=== PATIENT | female | born 1985 | race Caucasian/White ===

== ENCOUNTER → 2019-12-19 17:19 | Outpatient (CLI) | payer SELFPAY ==
--- NOTE | 2019-12-19 18:15 | MRI_ITS ---
STUDY: MRI BRAIN WITH AND WITHOUT CONTRAST REASON FOR EXAM: Female, 34 years old. LEFT blurred vision,dizziness, H/A x 1 week, family Hx MS TECHNIQUE: Standardized multiplanar fat and water weighted pulse sequences were obtained. 13ml Dotarem via IV was administered for the contrast portion of the examination. COMPARISON: May 21, 2017 FINDINGS: Normal size of the ventricles and extra-axial spaces for the patient''s age. Mild nonspecific periventricular white matter disease.. There are foci of restricted diffusion in the left parieto-occipital region as well as the right parietal lobe. Possibility of coexisting acute ischemic changes are not excluded Normal bilateral basal ganglia. Normal thalami. There is no extra-axial fluid accumulation. Normal flow voids within the major intracranial circulation suggesting patency by spin echo criteria. Normal venous enhancement. There is no enhancing intra-axial or extra-axial abnormality. Normal sella turcica, pituitary gland, infundibular stalk, optic chiasm and hypothalamus. Normal tectal plate and pineal gland. Normal midbrain, leighann and medulla. Normal cerebellum. Normal basal cisterns. Normal bilateral temporal bones. Normal bilateral internal auditory canals. No demonstrated orbital abnormality, within the constraints of a routine brain study. Normal visualized paranasal sinuses. Normal calvarium and skull base. Normal visualized soft tissue structures. Normal visualized upper cervical spine. MRI/Brain W/WO Contrast IMPRESSION: Mild nonspecific periventricular white matter disease which may be consistent with clinical history of multiple sclerosis however there are foci of restricted diffusion in the left parietal occipital region and right parietal lobe which may represent foci of acute demyelination however coexisting acute ischemic changes cannot be excluded. As these lesions are in different vascular distributions embolic disease also may be considered. Clinical correlation is recommended Electronically Signed: Manuel Gutierrez MD at 19:28 EDT , Service support ,
== END ==
PROVIDERS: Referring Provider Ophthalmology; Visit Provider Ophthalmology
DX: H46.9 Unspecified optic neuritis (principal)
CPT/HCPCS: 70553; A9575

== ENCOUNTER 2020-03-19 17:06 | Emergency (ER) | payer MEDICAID, SELFPAY ==
[2020-03-19 17:08] VITALS: BP 148/89; PULSE 95; RESP 17; TEMP 36.5; O2SAT 100; BMI 24.3
--- NOTE | 2020-03-19 17:40 | ED.DCSUM_ITS ---
History of Present Illness Chief Complaint: Headache Informant: Patient Onset: Days - 2 Context: Gradual, Onset - day after having diagnostic LP at [facility] Timing: Continuous Quality: Similar Prior Headaches - but worse, Throbbing Location: bifrontal, radiating to neck Current Severity: Severe Maximum Severity: Severe Worsened by: sitting up Relieved by: lying supine Associated Symptoms: Negative for: Fever, Nausea, Vomiting, Sore Throat, Sinus Pressure, Numbness, Tingling, Visual Changes, Blurred Vision, Photophobia, Visual Loss Narrative: Patient had a diagnostic LP at [facility] 3 days ago that was done to rule out other things in process of potentially diagnosing her with multiple sclerosis which runs in her family after an episode of optic neuritis that she had several months ago. She was having headaches prior to the LP and during that, the day after that they started worsening. It is similar headache, and she describes it as a migraine because she has a history of these and it feels similar, except this 1 is much better with lying down and worse with sitting up. She called and was advised to come to the emergency department. She is having neck pain with this as well posteriorly. She does not necessarily feel stiff. She denies any fevers or low back pain, and no focal neurologic symptoms in her arms or legs. She states after the lumbar puncture, she lied flat for an hour. She also has been drinking caffeinated beverages over the last couple days. Past Medical History - Allergies and Home Meds Allergies/Adverse Reactions: Allergies Penicillins Allergy (Verified 03/19/20 17:08) Swelling Primary Care Physician: Care Physician,No Primary [Primary Care Provider] - Smoking Status: Never smoker Review of Systems General: Denies: Chills, Fever, Sweats Eyes: Denies: Visual changes - bilaterally, Diplopia ENT: Denies: Bilateral ear pain, Rhinorrhea, Sore throat Cardiovascular: Denies: Chest pain, Palpitations Respiratory: Denies: Dyspnea, Cough, Dyspnea on exertion Gastrointestinal: Denies: Abdominal pain, Nausea, Vomiting, Diarrhea, Melena, Hematochezia Genitourinary: Denies: Dysuria, Hematuria, Frequency Musculoskeletal: Reports: Neck pain. Denies: Back pain, Swelling, Extremity Pain Skin: Denies: Rash, Wounds Neurological: Reports: Headache. Denies: Weakness, Numbness Physical Exam Vital Signs/Narrative: Vital Signs Temp Pulse Resp BP Pulse Ox 03/19/20 17:08 97.7 F L 95 17 148/89 H 100 Inital Vital Signs reviewed: Yes General: Well nourished, Well developed, - - Well-appearing, no acute distress Head: NC, AT Eyes: Perrl, EOMI ENT: Moist mucous membranes, No rhinorrhea Neck: Supple, No Lymphadenopathy, Nontender, No Meningismus, - - Negative Kernig. Negative Brudzinski. Cardiovascular: Regular rate, Regular rhythm, No murmurs Respiratory: No distress, CTA bilaterally, Chest nontender Abdomen: Soft, Nontender, Nondistended, Normal bowel sounds Back: Nontender, Normal Inspection Extremities: Nontender, No edema Skin: Normal color, No rash, - - Lumbar puncture site in low back is benign, nontender, without signs of infection or tenderness. Neuro: Alert, Oriented x3, Cranial nerves II-XII grossly intact, Normal Strength, Normal Sensation, Normal Gait Psychological: Normal affect, Normal Mood Diagnostic/Tx/Re-eval - Medical Decision Making Patient was treated with IV fluids, Toradol, Reglan, and IV caffeine 500 mg. About fpc into the caffeine bag, her headache resolved. She was feeling a little lightheaded. I stop the infusion and set her up for a little while, she had no recurrence of the headache and the lightheadedness resolved gradually. I suspect this may have been a side effect due to the caffeine, but since she has better she does not require a blood patch at this time. We did discuss that. She is comfort going home at this time we discussed reasons to return. She is comfortable with that plan. ED Disposition - Plan for ED Patient: Disposition: Home or Assisted Living Diagnosis: Spinal puncture headache Instructions: ED Headache After Spinal Tap No Patch Referrals: Doctor,Your [STAFF PHYSICIAN] - 3-5 Days if not improving (or may return to the ER)
[2020-03-19] MEDS: 0.9% Normal Saline 1,000 ML 999 ML IV (17:57)
[2020-03-19] MEDS: Metoclopramide 10 MG/2 ML Vial 5 MG IV (17:58)
[2020-03-19] MEDS: Ketorolac 30 MG/ML Syringe IV (17:58)
[2020-03-19 20:52] VITALS: BP 131/57; PULSE 69; RESP 16; O2SAT 97
== END 2020-03-19 20:52 | disposition home or self-care (01) ==
PROVIDERS: Emergency Provider Emergency Medicine
DX: G97.1 Other reaction to spinal and lumbar puncture (principal)
CPT/HCPCS: 96374; 96375; 99283; J7030; J7040; A4216

== ENCOUNTER 2020-09-03 14:30 | Outpatient (RCR) | payer MEDICAID, SELFPAY ==
--- NOTE | 2020-04-01 10:48 | HP.OTEVAL_ITS ---
Patient's Visit Information SE PANIAGUA is a 34 year old F, referred to Occupational Therapy by FLEX KAUFMAN, with a diagnosis of MS. Date of Evaluation: 03/31/20 Occupational Therapist: Azeb Gill, RUBA/Jodi, CHT - Subjective This 34 year old female was seen for OT eval- with dx of right hand weakness. pt states she noticed she has decreased FMS- in February. was confirmed that she has MS and now after staroid she is struggling with her FMS speed and dexterity. 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 pt has not returned to work at this time. Pt feels she needs to increase her UB and FM coordination to return. - ADLs Dressing: Button shirt, Socks Fasteners: Tie shoes Eating: Bring food to mouth, Use silverware, Cut food, Drink from glass Bathing: Handle washcloth & soap, Wash hair, Squeeze shampoo bottle Comments: limited coordination Household: Laundry Comments: folding lundry difficult - ROM Shoulder: right flex 140 left 160 Elbow: Right/left WNL Forearm: Right/left WNL Wrist: Right/left WNL - Strength Shoulder: right 4/5 left 4+/5 Information Technology Coordinator: right 35# left 40# Lateral Pinch: right 12# left 12# Tripod Pinch: right 8# left 9# - Sensation Thumb: right/left 2.44 Index: right/left 2.44 Middle: right/left 2.44 Ring: right/left 2.44 Little: right/left 2.44 - Movement Movement Comments: pt demo with slow movement - Nine Hole Peg Right: 1min 24 sec. Left: 35.93sec - In-Hand Manipulation Finger to Palm Translation: Severe - Right, Mild - Left Palm to Finger Translation: Severe - Right, Mild - Left - Quick DASH-Disab of Arm,Shoulder& Hand Quick DASH Score: 73.3325 - Goals Goal:: PT will demo a increase in right UE MMT 4+/5 to increase pts ind. with ADLs and IADLs by d/c. pt will demo a increase in senior security analyst strength by 10#, a increase in pinch strength by 2# to increase ind. with ADls and IADLs by d/c Goal:: pt will demo the ability to write legibly 5 sentances. pt will demo a decrease in 9-hole peg test time by 30 sec. to demo a increase in FMS by d/c. pt will demo the ability to manipulate fasteners in less than 3 sec. by d/c. pt will demo the ability to type for 15 min with min. errors - Rehabilitation General Assessment: PT demo a decrease in right UE strength a decrease in FMS limiting her ind. with ADLs and IADLS. Pt would benefit from skilled OT services 2x week for 6 weeks to increase ind. to return to her PLOF. Rehabilitation Potential: Good - Anticipated Interventions A/AAROM/PROM, Strengthening, Fine Motor Coord/Domingo, Education re assistive Equipment - Visit Plan Frequency: 1-2x /Week Duration: 4 Weeks General Plan: Therapist ed. pt on timed FMS ideas to challenge her and improver her ind. with ADls and IADLs. Therapy will ed. pt on PRE with energy conservation tasks. TEXT: Thank you for the opportunity to evaluate your patient. For Medicare and Medicare HMO plans, please review the plan of care and approve it. It will need to be FAXED BACK to us at [phone] for Medicare purposes. Please let me know if there are questions or concerns regarding this plan of care. Physician Signature: Date:
--- NOTE | 2020-05-12 14:00 | HP.OTREVAL ---
FLEX KAUFMAN, It has been my pleasure to treat ES PANIAGUA over the last 10 visits for MS. Please see the progress note below for an update on the occupational therapy plan of care! Subjective: pt states she is feeling good- states she is at about 75% improvement. pt states she is IND. with Bathing/dressing/grooming tasks - pt states it is getting easier to brush her teeth but stuggles and swithches back to he left hand. pt states she is feeling better- mom gives her B12, B2 50,000, a multi vit. and your waiting on approval for new medication which she is hoping will cont. to improve her condition. Objective/Function: left 9-hole peg 48.84sec. right 9-hole peg 57.34sec. right supervisory examiner 45# a increase from 35# left 53# a increase from 40#. right lateral pinch 12# this is same from initial eval left 14# a increase from 12#. pt demo with bilateral UE at 4+/5. pt has made great gains with strenght and FMS- pt would benefit form continue services to assit with functional strength Plan Frequency: Every Other Week Duration: 4 Weeks Plan: pt to return this week for re-check with HEP- then see pt in two weeks x 2 weeks to ensure pt continues to progress and do well Goals - Goals Patient Goals: Regain Mobility, Improve Fine Motor Skills, Use Hand/Wrist/Arm Normally Again, Be More Independent in ADLS Goal:: PT will demo a increase in right UE MMT 4+/5 to increase pts ind. with ADLs and IADLs by d/c. pt will demo a increase in supervisory examiner strength by 10#, a increase in pinch strength by 2# to increase ind. with ADls and IADLs by d/c Goal:: pt will demo the ability to write legibly 5 sentances. pt will demo a decrease in 9-hole peg test time by 30 sec. to demo a increase in FMS by d/c. pt will demo the ability to manipulate fasteners in less than 3 sec. by d/c. pt will demo the ability to type for 15 min with min. errors Anticipated Interventions Anticipated Interventions: A/AAROM/PROM, Strengthening, Fine Motor Coord/Domingo, Education re assistive Equipment Please do not hesitate to contact me at [phone] by phone or if you have questions or concerns regarding this new plan of care! Sincerely, Azeb Gill OTR/L, CHT
--- NOTE | 2020-07-07 09:57 | HP.PTEVAL ---
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 Date of Evaluation: 07/02/20 Physical Therapist: Colton Lucero DPT - Visit Plan Frequency: 2x /Week Duration: 4-6 Weeks Plan: Start with bike for endurance, BLE strengthening, and dynamic higher level balance as tolerated. Due to possible MS diagnosis, just be mindful of over exertion. Progress as tolerated. - Subjective Pt. 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 DOI: December 2019. Pt. has also been to several specialist who have been trying to figure out an underlying cause. Potentially MS, but not fully ruled in/out. Pt. reports no dizziness, no blurred vision, no double vision. Pt. does not use an AD, is still unable to drive as well. Pt. reports overall she is doing much better, but is still concerend about fatigue and strength issues. Pt. is able to complete most activities at home without issues, but has not returned to work. 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 She is hopeful to increase her endruance, strength and balance in order to get back to all recreational and work activities without issues. - Objective POSTURE: Pt. has decent posture in stance. No lateral lean noted, good base of supported noted. PALPATION: normal throughout. NEURO: Pt. has normal DTR and normal sensation to light and sharp touch. ROM: Pt. has good ROM of BLEs, slight tightness in B Hamstrings, but overall minimal ROM issues. MMT: 4+/5 bilateral LE and UE strength. No pain with testing. PT. has similar strength bilaterally and symmetrical. Core strength- poor+. GAIT: Pt. ambultes without AD Independently. Pt. does have decreased arm swing and increased lateral translation and slight reduction in tempo of gait. Pt. does have occassional lateral stepping stratagies to correct balance. STAIRS: Pt. is able to negotiation with 1 HR with reciprocal pattern, but does report increased fatigue with both ascending and descending. - Balance Scores Functional Gait Assessment Score: 21 % Disability: 30.0000 - Goals Goal 1:: LTG: Pt. to be I with HEP. Goal Time Frame: 4-6 Weeks Goal 2:: STG: Pt. to ambulate unlimited distances with decreased stepping stratagies to correct momentary LOB. Goal Time Frame: 2-4 Weeks Goal 3:: LTG: Pt. to ambulate unlimited distances without limitations without AD. Goal Time Frame: 4-6 Weeks Goal 4:: LTG: Pt. to have increased BLE and core strength to 5/5 throughout. Goal Time Frame: 4-6 Weeks Goal 5:: LTG: Pt. to have increased FGA to 28/30 indicating reduce risk for future falls. Goal Time Frame: 4-6 Weeks - Rehabilitation Potential Physical Therapy Diagnosis: Pt. has signs and symptoms consistent with acute CVA. Pt. is overall doing well, she has some general strength and endurance issues and some balance inconsistencies as we challenge higher levels of balance. Pt. would benefit from PT to increase her balance, BLE strength and overall endurance allowing her to return to all work and recreational activities. Rehabilitation Potential: Excellent - Anticipated Interventions Patient/Client Instruction: Educate patient on: Condition, Plan of Care, Risk Factors, Benefits of Fitness Program For the Purpose of:: To facilitate caregiver knowledge, To improve self management, To prevent re-injury, To improve ability to perform tasks related to life management, To improve tolerance to ADL's Therapeutic Exercise to Include: Strength training, Power training, Endurance training, Balance training, Postural training, Flexibilty training, Gait and locomotor training, Dynamic Lumbar Stabilization For the Purpose of:: To increase ROM, To improve nutrient delivery to tissue, To increase oxygenation perfusion, To improve muscle performance and motor function, To improve ability to perform ADL's, To improve gait and locomotor functions, To improve health of tissue, To decrease soft tissue restriction, To increase flexibility/ROM, To improve endurance, To improve balance, To improve safety with gait Thank you for the opportunity to evaluate your patient. For Medicare and Medicare HMO plans, please review the plan of care and approve it. It will need to be FAXED BACK to us at [phone] for Medicare purposes. For Medicare only, by signing this I certify the plan of care. Please let me know if there are questions or concerns regarding this plan of care. Physician Signature: Date:
--- NOTE | 2020-07-09 13:05 | HP.OTEVAL_ITS ---
Patient's Visit Information ES PANIAGUA is a 35 year old F, referred to Occupational Therapy by FLEX KAUFMAN, with a diagnosis of CVA. Date of Evaluation: 07/08/20 Occupational Therapist: Azeb Gill, OTR/Jodi, CHT - Subjective This 35 year old female was seen for OT eval due to CVA- pt states they are not sure if she has MS- possible lupus or vascularitis pt is on blood thiner now to prevent blood clots. Jun.13- pt states she was released from [facility] on pt states she has noticed a change in vision since her episode-pt sattes she continues to have difficulty when she is tired pt states her limitations are with FMS, vision and balance. - ADLs Dressing: Button shirt, Socks Fasteners: Tie shoes, Buttons, Zippers, Snaps, [place] Eating: Use silverware, Cut food Bathing: Handle washcloth & soap, Wash hair, Squeeze shampoo bottle Comments: limited coordination Household: Laundry Miscellaneous: Handle money (change), Hold change, Take things out of wallet, Carry shopping bag, Write, Turn pages in book Comments: folding lundry difficult - ROM Shoulder: right flex 140 left 160 Elbow: Right/left WNL Forearm: Right/left WNL Wrist: Right/left WNL - Strength Shoulder: right 4/5 left 4+/5 Cloth Napping Supervisor: right 42# left 52# Lateral Pinch: right 8# left 6# Tripod Pinch: right 4# keft 8# - Sensation Thumb: right/left 2.44 Index: right/left 2.44 Middle: right/left 2.44 Ring: right/left 2.44 Little: right/left 2.44 - Movement Movement Comments: pt demo with slow movement - Nine Hole Peg Right: 1min 47 sec Left: 49 sec Comments: right has decreased in FM control and noted difficulty with vision - In-Hand Manipulation Finger to Palm Translation: Severe - Right, Mild - Left Palm to Finger Translation: Severe - Right, Mild - Left - Quick DASH-Disab of Arm,Shoulder& Hand Quick DASH Score: 63.3325 - Goals Goal:: PT will demo a increase in right UE MMT 4+/5 to increase pts ind. with ADLs and IADLs by d/c. pt will demo a increase in curriculum counselor strength by 10#, a increase in pinch strength by 2# to increase ind. with ADls and IADLs by d/c Goal:: pt will demo a reduction in right hand 9-hole peg test time by 5 sec. indicating a increase in pts FMS by d/c. pt will demo the ability to write name legibly 4/5 trials by d/c. pt will demo ind manipulation of fasteners by d/c Goal:: pt will demo the ability to use visual compensitory moiz due to her compromised visual field/depth perception by d/c - Rehabilitation General Assessment: pt demo with a decline in right FMS, vision and strength of right UE. pt would benefit from skilled OT services 2 x week for 4 weeks to assist pt in return to her PLOF. Rehabilitation Potential: Good - Anticipated Interventions Strengthening, Fine Motor Coord/Domingo, Neuro Reeducation, Visual/Perceptual Skills - Visit Plan Frequency: 1-2x /Week Duration: 4 Weeks General Plan: Therapist ed. pt on timed FMS ideas to challenge her and improver her ind. with ADls and IADLs. Therapy will ed. pt on PRE with energy conservation tasks. TEXT: Thank you for the opportunity to evaluate your patient. For Medicare and Medicare HMO plans, please review the plan of care and approve it. It will need to be FAXED BACK to us at [phone] for Medicare purposes. Please let me know if there are questions or concerns regarding this plan of care. Physician Signature: Date:
--- NOTE | 2020-09-06 08:46 | HP.PTREVAL ---
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 Please see the progress note below for an update on the physical therapy plan of care! Subjective: Pt. reports I do feel like I am getting better.' Pt. reports getting around the house better. She says that her balance has improved no falls noted. Pt. does feel like her depth perception is off. Which is effecting her gait. Objective/Function: MMT: Pt. has equal muscle strength in BLEs without signs of myotomal weakness. Pt. has good ROM of BLEs no restrictions noted. FGA: GAIT: pt. is still caution with her gait, tends to place her foot down prior to attempting to wt. shift, more prevelant with stair negotation. She did bump into computer electrical test engineer hallway with reports I did not think I was that close to that. Catching she tends to miss consistently. Same thing with peg board testing. She has difficulty judging distance as she almost knock the whole board over. She is doing well with all other aspects. Plan Plan: Pt. is overall doing well from a PT stand point. We will continue x1 per week focusing on dynamic balance and coordination activities included. Goals Goal 1:: LTG: Pt. to be I with HEP. Goal Time Frame: 4-6 Weeks Goal Progress: Goal Met Goal 2:: STG: Pt. to ambulate unlimited distances with decreased stepping stratagies to correct momentary LOB. Goal Time Frame: 2-4 Weeks Goal Progress: Goal Met Goal 3:: LTG: Pt. to ambulate unlimited distances without limitations without AD. Goal Time Frame: 4-6 Weeks Goal Progress: Goal Met Goal 4:: LTG: Pt. to have increased BLE and core strength to 5/5 throughout. Goal Time Frame: 4-6 Weeks Goal Progress: Goal Met Goal 5:: LTG: Pt. to have increased FGA to / indicating reduce risk for future falls. Goal Time Frame: 4-6 Weeks Goal Progress: Progressing Anticipated Interventions Patient/Client Instruction: Educate patient on: Condition, Plan of Care, Risk Factors, Benefits of Fitness Program For the Purpose of:: To facilitate caregiver knowledge, To improve self management, To prevent re-injury, To improve ability to perform tasks related to life management, To improve tolerance to ADL's Therapeutic Exercise to Include: Strength training, Power training, Endurance training, Balance training, Postural training, Flexibilty training, Gait and locomotor training, Dynamic Lumbar Stabilization For the Purpose of:: To increase ROM, To improve nutrient delivery to tissue, To increase oxygenation perfusion, To improve muscle performance and motor function, To improve ability to perform ADL's, To improve gait and locomotor functions, To improve health of tissue, To decrease soft tissue restriction, To increase flexibility/ROM, To improve endurance, To improve balance, To improve safety with gait Please do not hesitate to contact me at [phone] by phone or if you have questions or concerns regarding this new plan of care! Sincerely, Colton Lucero DPT
== END 2020-09-03 17:00 | disposition home or self-care (01) ==
LOC: PT 14:30
DX: G35 Multiple sclerosis (principal)
CPT/HCPCS: 97110; 97161; 97164; 97166; 97530

== ENCOUNTER 2021-02-21 18:00 | Outpatient (RCR) | payer MEDICAID, SELFPAY ==
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
--- NOTE | 2020-12-28 11:57 | HP.PTEVAL ---
Patient's Visit Information ES PANIAGUA is a 35 year old F referred to Physical Therapy by ITA SANCHEZ with a diagnosis of Gait imbalance post CVA. Date of Evaluation: 12/15/20 Physical Therapist: Colton Lucero DPT - Visit Plan Frequency: 2x /Week Duration: 4-6 Months Plan: Start with dynamic gait progressing, static balance progression, functional strengthening of BLEs. - Subjective Pt. is here today for her initial evaluation with diagnosis of abnormality with gait with history of CVA. Pt. had a CVA last year has been having gait difficulty and low energy. She reports having to be very careful with her gait and she does not trust her legs. Pt. dose not use an AD, but reports being methodical with her gait. She was working at [employer], but is currently not working. She was also diagnosed with antiphospholipid syndrome which she thinks can have caused her CVA. Pt. has had what she reports multiple TIAs since. She is taking infusion for her MS as well. No issues with sleeping, no reported falls. Her biggest concern is with her balance/gait and with her constant fatigue. She had been seen previously working on LE strengthening and stability. She is overall hopeful to get better in order to get back to working and all recreational activities. - Objective POSTURE: Pt. has slouched posture in siting, but patient is able to self correct with VC/TCing. Pt. has increased ELIF in stance with anterior pelvic tilt with swayback posture. PALAPTION: No pain or edema in BLEs with palpation. NEURO: pt. has normal sensation of BLEs to light and sharp touch. Pt. has 2+ Achilles and Patellar DTR bilaterally. Pt. is able to rise on heels and toes, but does require a balance aide for stability. ROM: Pt. has normal ROM of BLEs and lumbar spine. Pt. has good DF ROM as well. She does have increased tightness in B hamstrings and hip flexors. MMT: Pt. has 5-/5 BLE strength, except hip abd 4/5 bilat, hip flexion 4/5 bilat and ankle DF 4/5 bilat. pt. reports no pain with testing. Core strength poor+. GAIT: Pt. ambulates without AD. Pt. has normal ELIF, but does tend to walk with increased B hip ER. She does tend to increased deviation from a straight path veering to the R. She did brush up against 2 wood on the R side., but able to correct. I had her walking around cones and stepping over objects. She was able to complete safely without issues, but did present with increased difficulty following directions with VCing. STAIRS: slight functional weakness with ascending and descending. She is very methodical about descending with reports of trying to figure out where the stair is prior to stepping down. - Balance Scores Functional Gait Assessment Score: 16 % Disability: 46.6700 CATSIB Score (Max score 120 seconds): 74 - Goals Goal 1:: LTG: Pt. to be I with HEP. Goal Time Frame: 2-4 Weeks Goal 2:: LTG: Pt. to have increased FGA to 24/30 indicating reduced risk for future falls. Goal Time Frame: 4-6 Weeks Goal 3:: LTG: Pt. to have 5/5 strength throughout BLEs. Goal Time Frame: 4-6 Weeks Goal 4:: LTG: pt. to negotiate steps with 1 HR with reciprocal pattern without issues. Goal Time Frame: 4-6 Weeks Goal 5:: LTG: pt. sanjuana complete CATSIB testing for 30se with out LOB. Goal Time Frame: 4-6 Weeks Goal 6:: LTG: Pt to have normal gait pattern without use of AD for unlimited distances without LOB out limitations Goal Time Frame: 4-6 Weeks - Rehabilitation Potential Physical Therapy Diagnosis: Pt. has signs and symptoms with gait imbalance. She is not using an AD, but is very methodical with her gait and appears to have R sided issues as she walks close to wood and even bumps into them at times, but it does not appear to be a full R sided neglect. Pt. has decreased LE strength, but only slightly. Her biggest issue I saw today dealt with her balance and gait. She has difficulty staying her path and with veering to the R. She would benefit from PT to work on progressing to full LE strengthening and increasing overall stability with gait and stance. Rehabilitation Potential: Good - Anticipated Interventions Patient/Client Instruction: Educate patient on: Condition, Plan of Care, Risk Factors, Benefits of Fitness Program For the Purpose of:: To improve decision making, To facilitate caregiver knowledge, To improve self management, To prevent re-injury, To improve ability to perform tasks related to life management Therapeutic Exercise to Include: Balance training, Postural training, Gait and locomotor training, Neuromotor development For the Purpose of:: To increase ROM, To increase oxygenation perfusion, To improve muscle performance and motor function, To improve ability to perform ADL's, To improve performance and independence with ADL's, To decrease level of supervision to perform tasks, To improve gait and locomotor functions, To improve health of tissue, To decrease soft tissue restriction, To improve endurance, To improve balance, To improve safety with gait Thank you for the opportunity to evaluate your patient. For Medicare and Medicare HMO plans, please review the plan of care and approve it. It will need to be FAXED BACK to us at [phone] for Medicare purposes. For Medicare only, by signing this I certify the plan of care. Please let me know if there are questions or concerns regarding this plan of care. Physician Signature: Date:
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
--- NOTE | 2021-02-21 12:02 | HP.PTDCSUM ---
It has been my pleasure to treat ES PANIAGUA referred by ITA SANCHEZ, with the diagnosis of Gait imbalance post CVA for a total of 11 visit(s). Discharge Date: 02/16/21 Please see the following information for a summary of their discharge status. Subjective: pt. reports doing very well. She is doing well with her walking program at home. She reports having a recent infusion for her MS which has helped a lot. Pt. reports being HEP compliant with all balance activities. She is up to walking 1-2 miles per day without issues. She reports no pain currently % Improvement: 90 Objective/Function: last visit FGA , MMT 5/5 throughout, gait: normal without issues. No lateral lean or gait devations. She is able to ambulate with catching and turning without LOB. She still has some difficulty with following 2 step commands. Pt. is overall doing well. She will be DC from PT today. Goal 1:: LTG: Pt. to be I with HEP. Goal Progress: Goal Met Goal 2:: LTG: Pt. to have increased FGA to 24/30 indicating reduced risk for future falls. Goal Progress: Goal Met Goal 3:: LTG: Pt. to have 5/5 strength throughout BLEs. Goal Progress: Goal Met Goal 4:: LTG: pt. to negotiate steps with 1 HR with reciprocal pattern without issues. Goal Progress: Goal Met Goal 5:: LTG: pt. to complete CATSIB testing for 30se with out LOB. Goal Progress: Goal Met Goal 6:: LTG: Pt to have normal gait pattern without use of AD for unlimited distances without LOB out limitations Goal Progress: Goal Met Plan: Pt to be DC next visit Discharge Comments: Pt. is overall doing much better. Her balance and gait has progressed a lot. She with pleased with progress. Her SLS and dynamic mobility is progressed greatly. I would like her to continue with balance exercises in HEP and progress home walking program. Pt. consents. If there are questions or concerns regarding this patient's physical therapy, please feel free to call me at [phone]. Thank you for the referral of this patient. Sincerely, Colton Lucero DPT
--- NOTE | 2021-02-21 18:27 | HP.OTDCSUM ---
It has been my pleasure to treat ES PANIAGUA under orders from ITA SANCHEZ, for the diagnosis of MS, CVA with right arm weakness for a total of 11 visit(s). Please see the following information for a summary of their discharge status. % Improvement: 75 Objective/Function: right saddle tree stitcher strength 50# a increase from 30# and left saddle tree stitcher strength 50# increase from 35#. right lateral pinch strength 6# left 10#. right tripod pinch strength 4# left 6#. pt demo with continued weakness of pinch but will cont. with a HEP. pt is using t-band color green at home for her HEP. pt continues to struggle with writing with name and words legibly. Therapist advised pt to continue with her HEP and compensatory moiz, with writing as needed. Patient Goals: Improve Fine Motor Skills, Be More Independent in ADLS, Improve Visual/Perceptual Skills Goal:: pt will demo a increase in BUE MMT by 1/2 mm grade to right 4+/5 and left 5/5 to increases pts ind. with ADLs and IADLs by d/c Goal:: Pt will demo improvement with FMS demo by IND with manipulating fasteners (tie shoes, button, zipper etc) in less than 30 seconds by d/C. pt will demo a decrease in 9-hole peg testing by 30 sec. or less indicating increase in FMS by d/c Goal:: pt will demonstrate the ability to write 3 sentences legibly within line boundaries to increase ind. with written communication by d/c Plan: D/C Discharge Comments: pt was seen in OT with dx of MS and FM concerns and weakness- therapist ed. pt on HEP for UB strength and fine motor tasks to increase her handwriting. Pt has met goals in OT and is d/c at this time. If there are questions or concerns regarding this patient's occupational therapy, please fell free to call me at [phone]. Thank you for the referral of this patient. Sincerely, Azeb Gill, OTR/L, CHT
== END 2021-02-21 19:00 | disposition home or self-care (01) ==
LOC: SP 18:00
DX: G31.84 Mild cognitive impairment of uncertain or unknown etiology (principal); R26.9 Unspecified abnormalities of gait and mobility; R29.898 Other symptoms and signs involving the musculoskeletal system
CPT/HCPCS: 92507; 92523; 97110; 97129; 97130; 97161; 97166; 97530

== ENCOUNTER 2025-06-19 11:45 | Emergency (ER) | payer MEDICARE, SELFPAY ==
[2025-06-19 11:46] VITALS: BP 140/106; PULSE 78; RESP 16; TEMP 36.8; O2SAT 98; BMI 24.9
[2025-06-19 12:22] LABS: Hematocrit 40.9 % (37-47); Hemoglobin 13.2 g/dL (12.0-15.0); Immature Granulocytes Count 0.030 X10^3/uL (0.0-0.0); Mean Corp Hgb Conc 32.3 g/dL (32-36); Mean Corpuscular Volume 88.1 fL (81-99); Mean Platelet Vol. 10.5 fl (6.2-12.0); NRBC Flagged by Analyzer 0 % (0-5); Platelet Count 402 K/mm3 (150-450); RBC Distribution Width CV 14.8 % (11.6-14.6); RBC Distribution Width SD 47.3 fl (35.1-43.9); Red Blood Count 4.64 M/mm3 (4.2-5.4); White Blood Count 8.2 K/mm3 (4.4-11.0)
[2025-06-19 12:27] LABS: Internal QC Validated? YES +Cl - CLEAR BKGD; Pregnancy, Serum, hCG Quali. NEGATIVE Negative; Record Kit Lot#, Serum Preg. 0000980607
--- NOTE | 2025-06-19 12:46 | CT_ITS ---
PROCEDURE: ABDOMEN/PELVIS W IV CONT ONLY 06/19/2025 REASON FOR EXAM: BILATERAL FLANK PAIN Worse on the left side. TECHNIQUE: Procedure Code: [id number] Modality: CT Procedure: ABDOMEN/PELVIS W IV CONT ONLY Coronal and Sagittal reconstruction series were provided. CONTRAST: Isovue-300 VOLUME: 80 mL One or more dose reduction techniques were used (e.g., Automated exposure control, adjustment of the mA and/or kV according to patient size, use of iterative reconstruction technique. RADIATION DOSE SUMMARY: CTDlvol: 9.5 mGy DLP: 681.52 mGycm COMPARISON: None FINDINGS: Lung bases: Mild dependent atelectasis Liver: Normal size. No mass. Gallbladder: Unremarkable. Spleen: Normal size. Pancreas: Normal size without evidence of mass surrounding inflammation or ductal dilation. Adrenals: Unremarkable Kidneys: Normal renal sizes. No hydronephrosis. Questionable tiny calculus at the left ureterovesical junction. Bladder: Unremarkable Reproductive Organs: Normal uterine size and contour. Ovaries are unremarkable. Bowel: Scattered fecal material seen throughout the colon. Appendix: Unremarkable Lymph nodes: Unremarkable. Vasculature: Mild diffuse atherosclerotic calcifications are noted. Peritoneum / Retroperitoneum: Unremarkable Bones: Unremarkable CT/Abdomen/Pelvis W IV Cont ONLY IMPRESSION: Questionable tiny calculus at the left ureterovesical junction. Reading Location: [place] [id number]
[2025-06-19 12:48] LABS: Mucous, Urine 0 SEEN /hpf (<or=2+); Red Blood Cells-Urine 0 SEEN /hpf (0-5)
[2025-06-19 12:51] LABS: Color, Urine Yellow (Yellow); Glucose, Dipstick Normal (Normal); Ketone-Dipstick Negative (Negative); Leukocyte Esterase-Dipstick 100 /ul (Negative); Nitrite-Dipstick Negative (Negative); Occult Blood-Urine Negative /ul (Negative); Protein-Dipstick 15 mg/dl (Negative); Specific Gravity, Urine 1.010 (1.002-1.030); Urine Bilirubin Dipstick Negative (Negative)
[2025-06-19] MEDS: 0.9% Normal Saline (1000mL) 1,000 ML 999 ML IV (12:52)
--- NOTE | 2025-06-19 12:54 | EDS_ITS ---
HPI History of Present Illness Chief Complaint: Abd Pain Narrative Narrative: Chief complaint and HPI: 40-year-old female with past medical history as CVA and blood clots on warfarin, chronic back pain and right-sided sciatica presents for evaluation of bilateral flank pain. Patient states a couple days ago she developed left flank pain. Started in her back and radiated to the abdomen. She then developed right flank pain again starting from the back radiating to the abdomen. She was seen by her primary care physician which she states she had an ultrasound performed and labs that were unremarkable other than cholelithiasis. Patient states she was referred to the emergency department. She denies any fever, chills, shortness of breath, chest pain, nausea, vomiting, constipation, diarrhea, dysuria. Review of systems: See HPI Medications: As listed on the chart Allergies: As listed on the chart PFSH: Per chart Vital signs: As listed on the chart. Reviewed. Physical exam: Gen: A&O x3, NAD Head: Normocephalic, atraumatic Eyes: No sclera icterus, conjunctiva clear ENT: Moist mucous membranes CV: RRR, no murmurs Resp: Lungs CTA BL, no w/r/c GI: Abd soft, non-distended, non-tender, no r/r/g : No CVA tenderness Musc: Full ROM, no deformity, no midline spinal tenderness tenderness, patient tender to palpation of the paraspinal musculature of the lumbar spine bilaterally-recreates her pain with palpation, DP/PT pulses +2 bilaterally, good capillary refill Skin: Warm, dry Neuro: Alert, oriented, grossly intact Psych: Cooperative, appropriate mood and affect [facility] Medications Medication Instructions Recorded Last Taken Type cetirizine 10 mg tablet 10 mg PO DAILY 03/19/20 Unkn own History copper gluconate 2 mg capsule 2 mg PO DAILY 03/19/20 U nknown History ergocalciferol (vitamin D2) 1,250 50,000 unit PO Q7D 0 03/19/20 Unknown History mcg (50,000 unit) capsule Allergy/AdvReac Type Severity Reaction Status Date / Time Penicillins Allergy Swelling Verified 06/19/25 11:47 Social History Smoking Status: Never smoker EXAM Physical Exam Const Vital Signs: 06/19/25 11:46 06/19/25 13:45 Temperature 98.2 F Temperature Source Oral Pulse Rate 78 70 Respiratory Rate 16 14 Blood Pressure 140/106 H 137/94 H Blood Pressure Mean 117 108 Pulse Ox 98 98 Oxygen Delivery Method Room Air Room Air MDM MDM MDM Narrative Medical decision making narrative: 40-year-old female with past medical history as CVA and blood clots on warfarin, chronic back pain and right-sided sciatica presents for evaluation of bilateral flank pain. Patient states a couple days ago she developed left flank pain. Started in her back and radiated to the abdomen. She then developed right flank pain again starting from the back radiating to the abdomen. She was seen by her primary care physician which she states she had an ultrasound performed and labs that were unremarkable other than cholelithiasis. Patient states she was referred to the emergency department. On presentation, patient no acute distress and for mild hypertension. Differential diagnosis includes but is not limited to urolithiasis, UTI, myofascial spasm, suspect less likely intra- abdominal pathology such as colitis. NS bolus, Zofran, morphine, Valium ordered for symptoms. Abdominal pain workup ordered. CBC without leukocytosis or anemia. Platelets unremarkable. CMP unremarkable. Lipase unremarkable. Serum negative. UA positive for protein but negative for blood. Negative for UTI. CT abdomen pelvis shows questionable tiny calculus at the left UVJ. Otherwise unremarkable. On reevaluation, patient's pain is improved. Patient is comfortable discharging home. Pain may be secondary myofascial spasm versus possible left UVJ urolithiasis. Given they question a possible left UVJ stone we will treat for urolithiasis. Patient will be given prescription for narcotics as needed for severe pain, Zofran as needed for nausea and vomiting, and Flomax. Follow-up with primary care physician and urology. She is tender in her back with palpation to the muscles therefore recommend IcyHot and heating pad for possible myofascial spasm. She confirmed understanding of the plan. Return precautions explained. Patient about to discharge home. Impression: 1. Bilateral flank pain 2. Possible left UVJ urolithiasis 3. Lumbar back Lab Data Labs: Laboratory Results - last 24 hr 06/19/25 06/19/25 12:05 12:33 WBC 8.2 RBC 4.64 Hgb 13.2 Hct 40.9 MCV 88.1 MCH 28.4 MCHC 32.3 RDW Std Deviation 47.3 H RDW Coeff of Felipa 14.8 H Plt Count 402 MPV 10.5 Immature Gran % (Auto) 0.400 Neut % (Auto) 75.0 H Lymph % (Auto) 15.3 L [place] % (Auto) 7.8 Eos % (Auto) 1.0 Baso % (Auto) 0.5 Absolute Neuts (auto) 6.2 Absolute Lymphs (auto) 1.26 Nucleated RBC % 0 Sodium 140 Potassium 4.0 Chloride 104 Carbon Dioxide 24.0 Anion Gap 11 BUN 11 Creatinine 0.87 Estim Creat Clear Calc 79.43 Est GFR (MDRD) Non-Af 86 BUN/Creatinine Ratio 12.5 Glucose 100 H Calcium 9.3 Total Bilirubin 0.40 AST 18 ALT 11 Alkaline Phosphatase 100 Total Protein 7.5 Albumin 4.0 Globulin 3.5 Albumin/Globulin Ratio 1.1 Lipase 21 Serum , Qual NEGATIVE Urine Color Yellow Urine Clarity Sl. Cloudy Urine pH 8.0 Ur Specific [place] 1.010 Urine Protein 15 H Urine Glucose (UA) Normal Urine Ketones Negative Urine Occult Blood Negative Urine Nitrite Negative Urine Bilirubin Negative Urine Urobilinogen Normal Ur Leukocyte Esterase 100 H Urine RBC 0 SEEN Urine WBC 0-5 SEEN Ur Squamous Epith Cells 0-5 SEEN Urine Bacteria 0 SEEN Urine Mucus 0 SEEN Radiography Diagnostic Testing: Clinical Impression(s) from Imaging Studies Abdomen/Pelvis CT 06/19/25 12:46 IMPRESSION: Questionable tiny calculus at the left ureterovesical junction. Reading Location: [place] [address] Discharge Plan Triage Chief Complaint: Abd Pain ED Provider: Jose Sinclair Dx/Rx/DC Orders Prescriptions: No Action cetirizine 10 MG tablet 10 mg PO DAILY ergocalciferol (vitamin D2) 50,000 UNIT capsule 50,000 unit PO Q7D copper gluconate 2 MG capsule 2 mg PO DAILY Primary Care Provider: Adelaida Gaytan Referrals: Adelaida Gaytan, CUSTOMER RESPONSE REPRESENTATIVE [Primary Care Provider, Family Practice] Print Language: [place]
[2025-06-19 12:58] LABS: AST(SGOT) 18 U/L (<=31); Alanine Aminotransfer ALT/SGPT 11 U/L (<=34); Albumin, Serum 4.0 g/dL (3.5-5.0); Alkaline Phosphatase 100 U/L (35-104); Anion Gap 11 (5-15); BUN 11 mg/dL (4-19); BUN/Creat Ratio 12.5 RATIO (10-20); Calcium,Total 9.3 mg/dL (7.6-11.0); Carbon Dioxide 24.0 mmol/L (21.0-32.0); Chloride 104 mmol/L (98-108); Estimated Creatinine Clearance 79.43 ml/min (50-250); Globulin 3.5 g/dL (2.2-4.2); Glucose 100 mg/dL (70-99); Lipase 21 U/L (13-75); Potassium 4.0 mmol/L (3.3-5.1)
[2025-06-19 12:58] LABS: Squamous Epithelial Cells - UA 0-5 SEEN /hpf (5-10)
[2025-06-19 13:45] VITALS: BP 137/94; PULSE 70; RESP 14; O2SAT 98
[2025-06-19 14:42] VITALS: BP 112/66; PULSE 67; RESP 14; TEMP 36.4; O2SAT 100
== END 2025-06-19 14:46 | disposition home or self-care (01) ==
PROVIDERS: Emergency Provider Surgery; PCP Clinical Nurse Specialist Adult Health; Visit Provider Surgery
DX: R10.9 Unspecified abdominal pain (principal); M54.9 Dorsalgia, unspecified; Z86.73 Personal history of transient ischemic attack (TIA), and cerebral infarction without residual deficits
CPT/HCPCS: 74177; 80053; 81001; 83690; 84703; 85025; 96361; 96374; 96375; 96376; 99283; Q9967; A4216; J2405